=== PATIENT | male | born 1970 | race Caucasian/White ===

== ENCOUNTER 2017-06-14 10:42 | Emergency (ER) | payer OTHER ==
[~2017-06-14] VITALS: Ht 167.6 cm; Wt 68.0 kg
[2017-06-14] MEDS ORDERED: PREDNISONE 20 M20 MG PO (12:15)
[2017-06-14] MEDS ORDERED: VENTOLIN HFA 1818 GM INH (12:15)
[2017-06-14] MEDS ORDERED: TESSALON PERLE100 MG PO (12:15)
[2017-06-14 13:23] VITALS: BP 121/87
== END 2017-06-14 13:24 | disposition home or self-care (01) ==
LOC: M.ERS 10:42
DX: B34.9 Viral infection, unspecified (principal); J20.9 Acute bronchitis, unspecified; F17.200 Nicotine dependence, unspecified, uncomplicated

== ENCOUNTER 2018-07-10 12:53 | Emergency (ER) | payer OTHER ==
[~2018-07-10] VITALS: Ht 167.6 cm; Wt 67.7 kg
[~2018-07-10 12:53] MED LIST: PREDNISONE 20 M20 MG PO; TESSALON PERLE100 MG PO; VENTOLIN HFA 1818 GM INH
[2018-07-10] MEDS ORDERED: MEDROLDOSEPACK PO (13:30)
[2018-07-10] MEDS ORDERED: TESSALON PERLE100 MG PO (13:30)
[2018-07-10] MEDS ORDERED: VENTOLIN HFA 1818 GM INH (13:30)
[2018-07-10 13:49] VITALS: BP 136/91
== END 2018-07-10 13:49 | disposition home or self-care (01) ==
LOC: M.ERS 12:53
DX: J20.9 Acute bronchitis, unspecified (principal); F17.200 Nicotine dependence, unspecified, uncomplicated; Z88.8 Allergy status to other drugs, medicaments and biological substances

== ENCOUNTER 2019-07-30 13:59 | Emergency (ER) | payer OTHER ==
[~2019-07-30] VITALS: Ht 170.2 cm; Wt 68.0 kg
[~2019-07-30 13:59] MED LIST changes: +MEDROLDOSEPACK PO
[2019-07-30] MEDS ORDERED: LIDODERM1 EACH TOP (14:35)
[2019-07-30] MEDS ORDERED: MOBIC15 MG PO (14:35)
[2019-07-30 14:59] VITALS: BP 117/62
== END 2019-07-30 15:00 | disposition home or self-care (01) ==
LOC: M.ERS 13:59
DX: M25.511 Pain in right shoulder (principal); F17.210 Nicotine dependence, cigarettes, uncomplicated; Z88.8 Allergy status to other drugs, medicaments and biological substances

== ENCOUNTER 2020-03-27 13:33 | Emergency (ER) | payer OTHER ==
[~2020-03-27] VITALS: Ht 167.6 cm; Wt 68.0 kg
[~2020-03-27 13:33] MED LIST changes: +LIDODERM1 EACH TOP; +MOBIC15 MG PO
[2020-03-27 14:07] LABS: ABSOLUTE LYMPHOCYTES 1.5 thou/uL (0.8-5.3); ABSOLUTE MONOCYTES 0.4 thou/uL (0.0-1.2); ABSOLUTE NEUTROPHILS 7.2 thou/uL (1.6-8.1); BASOPHILS 0.3 %; EOSINOPHILS 0.4 %; HEMATOCRIT 42.6 % (42.0-52.0); HEMOGLOBIN 14.3 gm/dL (14.0-18.0); LYMPHOCYTES 15.9 %; MCH 30.9 pg (26.0-34.0); MCHC 33.5 g/dL (28.0-37.0); MCV 92.1 fL (80.0-100.0); MONOCYTES 4.6 %; MPV 8.1 fl. (7.2-11.1); NUCLEATED RBCS 0 /100WBC; PLATELET COUNT* 267 thou/uL (150-400); POLYS 78.8 %; RBC 4.62 mil/uL (4.50-6.00); RDW-CV 12.8 % (10.5-14.5); WBC 9.2 thou/uL (4.0-11.0)
[2020-03-27 14:26] LABS: CALCIUM 8.9 mg/dL (8.5-10.1); POTASSIUM 3.7 mmol/L (3.5-5.1)
[2020-03-27 14:35] LABS: TOTAL BILIRUBIN 0.6 mg/dL (<0.1-1.0); TOTAL PROTEIN 8.1 g/dL (6.4-8.2)
[2020-03-27] MEDS ORDERED: BENTYL 20 MG TA20 M1 PO (16:40)
[2020-03-27] MEDS ORDERED: IBUPROFEN 800800 M1 PO (16:40)
[2020-03-27] MEDS ORDERED: PHENERGAN 25 MG25 M1 PO (16:40)
[2020-03-27 16:50] VITALS: BP 133/73
--- NOTE | 2020-03-28 12:13 | EKG ---
[place] [address] ELECTROCARDIOGRAM REPORT Name: BECKI MARSHALL Room: [facility]#: [id number] Admission: 03/27/20 Attend Phys: Discharge: 03/27/20 Date of : 74 Date of Service: 03/27/20 1408 Report #: [id number] THIS REPORT FOR: //name// [facility] ED Test Date: 2020-03-27 Test Time: 14:08:01 Pat Name: BECKI MARSHALL Department: Room: Gender: [employer] Attendant: [facility] : 1970 Requested By: Vira Murguia Order Number: [id number] MD: Sridhar Roth Measurements Intervals [place] Rate: 59 P: 61 OH: 99 QRS: -2 QRSD: 106 T: 60 QT: 426 QTc: 422 Interpretive Statements Sinus rhythm Short OH interval Probable left ventricular hypertrophy Baseline wander in lead(s) II,III,aVF,V2 Compared to ECG 06/11/2008 08:36:25 Sinus bradycardia no longer present Electronically Signed On 03-28-2020 12:13:34 CDT by Sridhar Roth [email or web address] <ELECTRONICALLY SIGNED> By: Sharlene Roth MD, FACC 03/28/20 1213 07 Sharlene Roth MD, FAC /EPI
== END 2020-03-27 16:50 | disposition home or self-care (01) ==
LOC: M.ERS 13:33
PROVIDERS: Nurse Practitioner Family
DX: R11.2 Nausea with vomiting, unspecified (principal); R19.7 Diarrhea, unspecified; K59.00 Constipation, unspecified; Z88.8 Allergy status to other drugs, medicaments and biological substances